=== PATIENT | female | born 1985 | race Asian ===

== ENCOUNTER 2018-01-14 09:46 | Inpatient (IN) | payer SELFPAY ==
[~2018-01-14] VITALS: Ht 162.6 cm; Wt 77.1 kg
[2018-01-14] MEDS ORDERED: NALBUPHINE HYDROCHLORIDE 10 MG/ML VIAL IVP PRN (10:20)
[2018-01-14] MEDS ORDERED: OXYTOCIN 10 UNITS/ML VIAL IM SCH (10:20)
[2018-01-14] MEDS ORDERED: PROMETHAZINE 25 MG/ML VIAL IVP PRN (10:20)
[2018-01-14] MEDS ORDERED: CARBOPROST 250 MCG/ML AMP IM PRN (10:20)
[2018-01-14] MEDS ORDERED: OXYTOCIN 20 UNITS in LACTATED RINGERS 1,000 ML IV SCH (10:20)
[2018-01-14] MEDS ORDERED: METHYLERGONOVINE 0.2 MG/ML AMP IM PRN (10:20)
[2018-01-14] MEDS: LACTATED RINGERS 1,000 ML IV SCH ×3 (10:54→18:08)
[2018-01-14 11:18] LABS: BASOPHILS # (AUTO) 0.1 K/uL (0.00-0.22); BASOPHILS % (AUTO) 0.4 % (0.0-2.0); EOSINOPHILS # (AUTO) 0.1 K/uL (0-0.4); EOSINOPHILS % (AUTO) 0.7 % (0.0-4.0); HEMOGLOBIN 12.4 g/dL (12.0-16.0); LYMPHOCYTES # (AUTO) 1.6 K/uL (2.5-16.5); LYMPHOCYTES % (AUTO) 11.2 % (20.5-51.1); MEAN CORPUSCULAR HEMOGLOBIN 31 pg (27-31); MEAN CORPUSCULAR HGB CONC 35 g/dL (33-37); MEAN CORPUSCULAR VOLUME 90 fL (80-94); MONOCYTES # (AUTO) 0.8 K/uL (0.8-1.0); MONOCYTES % (AUTO) 5.7 % (1.7-9.3); PLATELET COUNT (AUTO) 234 K/uL (140-450); RED BLOOD CELL COUNT(AUTO) 3.98 MIL/uL (4.20-5.40); RED CELL DISTRIBUTION WIDTH 13.4 % (11.6-13.7); WHITE BLOOD COUNT (AUTO) 14.6 K/uL (4.8-10.8)
[2018-01-14 11:26] LABS: APPEARANCE,URINE CLEAR (CLEAR); BILIRUBIN,URINE NEGATIVE (NEGATIVE); BLOOD, URINE TRACE-L (NEGATIVE); COLOR,URINE YELLOW (YELLOW); LEUKOCYTE ESTERASE ,URINE NEGATIVE (NEGATIVE); NITRITE, URINE NEGATIVE (NEGATIVE); UGLUCOSE NEGATIVE (NEGATIVE)
[2018-01-14 11:47] VITALS: BP 104/59
[2018-01-14 11:50] LABS: RBC,URINE 0-5 (RARE) /HPF (0-5); WBC,URINE 0-5 (RARE) /HPF (0-5)
[2018-01-14 11:50] LABS: ANION GAP 13.4 (8-16); CREATININE 0.6 mg/dL (0.6-1.3); POTASSIUM 3.4 mmol/L (3.5-5.1)
[2018-01-14] MEDS ORDERED: PREN-546 PO (11:50)
[2018-01-14 11:55] LABS: ALBUMIN 2.6 g/dL (3.4-5.0); TOTAL BILIRUBIN 0.5 mg/dL (0.0-1.0)
[2018-01-14] MEDS ORDERED: BUPIVACAINE 0.125%/NS PREMIX 250 ML ONE (12:40)
[2018-01-15] MEDS ORDERED: OXYTOCIN 10 UNITS/ML VIAL ONE (00:08)
[2018-01-15] MEDS ORDERED: TEMAZEPAM 15 MG CAP PO PRN (03:10)
[2018-01-15] MEDS ORDERED: BENZOCAINE/MENTHOL 20%-0.5% 60 GM CAN TP PRN (03:10)
[2018-01-15] MEDS ORDERED: METHYLERGONOVINE 0.2 MG/ML AMP IM PRN (03:10)
[2018-01-15] MEDS ORDERED: oxyCODONE/APAP 5/325 MG 1 TAB TAB PO PRN (03:10)
[2018-01-15] MEDS ORDERED: OXYTOCIN 10 UNITS/ML VIAL IM PRN (03:10)
[2018-01-15] MEDS ORDERED: MEASLES, MUMPS, AND RUBELLA 1 VIAL SQVAC PRN (03:10)
[2018-01-15] MEDS ORDERED: IBUPROFEN 800 MG TAB PO PRN (03:10)
[2018-01-15] MEDS: HYDROcodone/APAP 5/325 MG 1 TAB TAB PO PRN ×2 (09:00→18:54)
--- NOTE | 2018-01-15 10:20 | NUR ---
PATIENT HAS BEEN SCREENED AND CATEGORIZED LOW NUTRITION RISK. PATIENT WILL BE SEEN WITHIN 7 DAYS OF ADMISSION. 01/21/18 KRISTAL GOLD MBA, RD
[2018-01-15] MEDS ORDERED: DOCUSATE SOD/SENNA 50/8.6 MG 1 TAB PO SCH (21:00)
[2018-01-16] MEDS: HYDROcodone/APAP 5/325 MG 1 TAB TAB PO PRN (04:15)
[2018-01-16 07:35] LABS: HEMATOCRIT 30.3 % (36-48); HEMOGLOBIN 10.3 g/dL (12.0-16.0)
[2018-01-16] MEDS ORDERED: INFLUENZA VIRUS VACCINE QUAD 0.5 ML SYR IMVAC SCH (10:30)
== END 2018-01-16 16:40 | disposition home or self-care (01) | DRG 775 ==
LOC: MFCC 09:46 → MLD 11:50 → MFCC 01-15 05:45
PROVIDERS: ADMIT Obstetrics & Gynecology; ATTEND Obstetrics & Gynecology
PROC: 10E0XZZ Delivery of Products of Conception, External Approach (ICD-10-PCS; principal; 2018-01-15)
PROC: 10907ZC Drainage of Amniotic Fluid, Therapeutic from Products of Conception, Via Natural or Artificial Opening (ICD-10-PCS; 2018-01-15)
PROC: 00HU33Z Insertion of Infusion Device into Spinal Canal, Percutaneous Approach (ICD-10-PCS; 2018-01-15)
PROC: 3E0R3BZ Introduction of Anesthetic Agent into Spinal Canal, Percutaneous Approach (ICD-10-PCS; 2018-01-15)
DX: O80 Encounter for full-term uncomplicated delivery (principal); Z37.0 Single live birth; Z3A.39 39 weeks gestation of pregnancy
CPT/HCPCS: 36415; 51702; 59070; 80053; 81001; 85018; 85025; 86592; 86886; 86900; 86901; 90715; J2590; J3490; J7120